=== PATIENT | female | born 1955 | race Caucasian/White ===

== ENCOUNTER 2021-03-02 15:44 | Outpatient (CLI) | payer BC | END 2021-03-02 15:45 | disposition home or self-care (01) | LOC: BICMAMMO 15:44 | PROVIDERS: ATTEND Physician Assistant | DX: Z12.31 Encounter for screening mammogram for malignant neoplasm of breast (principal) | CPT/HCPCS: 77063; 77067 ==

== ENCOUNTER 2022-04-05 12:58 | Outpatient (CLI) | payer BC | END 2022-04-05 12:59 | disposition home or self-care (01) | LOC: BICMAMMO 12:58 | PROVIDERS: ATTEND Physician Assistant | DX: Z12.31 Encounter for screening mammogram for malignant neoplasm of breast (principal); Z13.820 Encounter for screening for osteoporosis; Z78.0 Asymptomatic menopausal state; Z80.3 Family history of malignant neoplasm of breast | CPT/HCPCS: 77063; 77067; 77080 ==

== ENCOUNTER 2022-09-05 08:51 | Outpatient (CLI) | payer BC | END 2022-09-05 08:52 | disposition home or self-care (01) | LOC: BICULT 08:51 | PROVIDERS: ATTEND Obstetrics & Gynecology | DX: N95.0 Postmenopausal bleeding (principal); R93.89 Abnormal findings on diagnostic imaging of other specified body structures | CPT/HCPCS: 76856 ==

== ENCOUNTER 2025-09-16 14:55 | Outpatient (CLI) | payer MEDICARE | END 2025-09-16 14:56 | disposition home or self-care (01) | LOC: BICMAMMO 14:55 | PROVIDERS: ATTEND Family Medicine | DX: Z12.31 Encounter for screening mammogram for malignant neoplasm of breast (principal); Z80.3 Family history of malignant neoplasm of breast | CPT/HCPCS: 77063; 77067 ==